=== PATIENT | female | born 1995 | race Two or more races ===

== ENCOUNTER 2022-10-28 08:11 | Outpatient (CLI) | payer OTHER | END 2022-10-28 09:15 | disposition home or self-care (01) | LOC: PRENATAL 08:11 | PROVIDERS: ATTEND Obstetrics & Gynecology Maternal & Fetal Medicine | DX: O35.9XX0 Maternal care for (suspected) fetal abnormality and damage, unspecified, not applicable or unspecified (principal); O35.3XX0 Maternal care for (suspected) damage to fetus from viral disease in mother, not applicable or unspecified; Z3A.20 20 weeks gestation of pregnancy ==

== ENCOUNTER 2023-03-03 18:20 | Outpatient (CLI) | payer OTHER | END 2023-03-03 21:18 | disposition home or self-care (01) | LOC: NST 18:20 | PROVIDERS: ATTEND Student in an Organized Health Care Education/Training Program | DX: Z34.83 Encounter for supervision of other normal pregnancy, third trimester (principal) ==

== ENCOUNTER 2023-03-10 13:15 | Inpatient (IN) | payer OTHER ==
[~2023-03-10] VITALS: Ht 170.2 cm; Wt 84.4 kg
[2023-03-11] MEDS ORDERED: PRENATAL + DHA1 EAC1 PO (14:37)
== END 2023-03-14 13:18 | disposition home or self-care (01) | DRG 788 ==
LOC: LDR 03-11 14:10 → OB/GYN 03-11 21:20
PROVIDERS: ADMIT Student in an Organized Health Care Education/Training Program; ATTEND Student in an Organized Health Care Education/Training Program
PROC: 4A1HXCZ Monitoring of Products of Conception, Cardiac Rate, External Approach (ICD-10-PCS; 2023-03-11)
PROC: 10D00Z1 Extraction of Products of Conception, Low, Open Approach (ICD-10-PCS; principal; 2023-03-11 19:15)
DX: O36.8330 Maternal care for abnormalities of the fetal heart rate or rhythm, third trimester, not applicable or unspecified (principal); O75.89 Other specified complications of labor and delivery; Z3A.39 39 weeks gestation of pregnancy; Z37.0 Single live birth; Z20.822 Contact with and (suspected) exposure to COVID-19